=== PATIENT | female | born 1955 | race Caucasian/White ===

== ENCOUNTER 2017-06-07 08:24 | Outpatient (CLI) | payer OTHER ==
--- NOTE | 2017-06-12 12:44 | Mammography Report ---
DIGITAL BILATERAL SCREENING MAMMOGRAM: 06/07/2017 COMPARISON STUDY: Mammogram 06/08/2016 BREAST DENSITY: heterogeneously dense, which may lower the sensitivity of mammography. FINDINGS: There is a questionable cluster of microcalcifications of the right lower inner breast, much more conspicuous than on the prior examination. No mass or architectural distortion is seen in other regards. IMPRESSION: 1. BIRADS CATEGORY 0 - ADDITIONAL IMAGING IS REQUIRED. 2. RECOMMEND SPOT MAGNIFICATION VIEWS OF THE RIGHT BREAST LOWER INNER MARKED FOR EVALUATION OF CALCIFICATIONS. 3. SONOGRAPHIC EVALUATION OF THE RIGHT BREAST MAY BE CONSIDERED IF INDICATED AT THAT TIME. STANDARD QUALIFYING STATEMENTS 1. This examination was reviewed with the aid of Computer-Aided Detection (CAD). 2. A negative or benign imaging report should not delay biopsy if clinically suspicious findings are present. Consider surgical consultation if warranted. More than 5% of cancers are not identified by imaging. 3. Dense breasts may obscure an underlying neoplasm. JOB #: [id number] EXT JOB #: [id number] BRENT
== END 2017-06-07 08:25 | disposition home or self-care (01) ==
LOC: DI.N 08:24
PROVIDERS: ATTEND Family Medicine
DX: Z12.31 Encounter for screening mammogram for malignant neoplasm of breast (principal); R92.1 Mammographic calcification found on diagnostic imaging of breast
CPT/HCPCS: 77067

== ENCOUNTER 2017-07-02 08:51 | Outpatient (CLI) | payer OTHER ==
--- NOTE | 2017-07-02 17:52 | Mammography Report ---
DIAGNOSTIC RIGHT MAMMOGRAM: 07/02/2017 CLINICAL INDICATION: Calcifications. COMPARISON: 06/07/2017, 06/08/2106, 06/03/2015, 12/18/2013, 11/28/2012, 10/05/2011, 10/06/2010. TECHNIQUE: Right true lateral and spot magnification views. The right breast again demonstrates scattered fibroglandular densities. The calcifications are punct ate and diffuse. No pleomorphism is appreciated. No associated mass or architectural distortion. IMPRESSION: PROBABLE BENIGN PUNCTATE CALCIFICATIONS. RECOMMENDATION: DIAGNOSTIC RIGHT MAMMOGRAM IN SIX MONTHS, TO ASSURE STABILITY. BIRADS CATEGORY: 2, BENIGN FINDINGS. STANDARD QUALIFYING STATEMENTS 1. This examination was reviewed with the aid of Computed-Aided Detection (CAD). 2. A negative or benign imaging report should not delay biopsy if clinically suspicious findings are present. Consider surgical consultation if warranted. More than 5% of cancers are not identified b y imaging. 3. Dense breasts may obscure an underlying neoplasm. JOB #: [id number] EXT JOB #:[id number]
== END 2017-07-02 08:52 | disposition home or self-care (01) ==
LOC: DI 08:51
PROVIDERS: ATTEND Family Medicine
DX: R92.1 Mammographic calcification found on diagnostic imaging of breast (principal)

== ENCOUNTER 2018-06-27 08:41 | Outpatient (CLI) | payer OTHER ==
--- NOTE | 2018-06-27 09:56 | Mammography Report ---
Reason: 6 MONTHS FOLLOW UP,RIGHT BREAST CALIF Procedure Date: 06/27/2018 Accession Number: [id number] / [id number] Procedure: TAMRA - Diagnostic Dig Bilat CPT Code: FULL RESULT: EXAM: Diagnostic Dig Bilat DATE: 06/27/2018 9:42 AM CLINICAL HISTORY: Short interval follow-up surveillance imaging from prior exam. Follow-up right breast calcifications. No personal history of breast cancer. Family history and a cousin at age 50. TECHNIQUE: Bilateral CC and MLO views were obtained. COMPARISON: 06/07/2017 through 12/18/2013 FINDINGS: The breasts demonstrate scattered fibroglandular densities bilaterally. Right breast: There are stable diffusely distributed punctate calcifications slightly more prominent medially, unchanged compared to studies dating back to 2013. Stability and distribution are consistent with benign calcium. There are no suspicious masses, calcifications or areas of distortion. Left breast: There are no suspicious masses, calcifications or areas of distortion. IMPRESSION: Right breast: Stable diffusely distributed calcifications. Benign. BI-RADS Category 2. Left breast: Negative. BI-RADS Category 1 RECOMMENDATION: Routine annual screening unless otherwise clinically indicated. BI-RADS CATEGORY 2: Benign findings STANDARD QUALIFYING STATEMENTS: 1. This examination was not reviewed with the aid of Computer-Aided Detection (CAD). 2. A negative or benign imaging report should not preclude biopsy if clinically suspicious findings are present. 3. Dense breasts may obscure an underlying neoplasm. 4. This examination was reviewed with the aid of 3D breast imaging (tomosynthesis).
== END 2018-06-27 08:42 | disposition home or self-care (01) ==
LOC: DI 08:41
PROVIDERS: ATTEND Family Medicine
DX: R92.1 Mammographic calcification found on diagnostic imaging of breast (principal); Z80.3 Family history of malignant neoplasm of breast
CPT/HCPCS: 77066

== ENCOUNTER 2019-10-23 07:00 | Outpatient (CLI) | payer OTHER ==
[2019-10-23 12:00] LABS: BASOPHILS # (AUTO) 0.1 10^3/uL (0.0-0.1); EOSINOPHILS # (AUTO) 0.1 10^3/uL (0.0-0.7); EOSINOPHILS % (AUTO) 1.3 %; HGB - HEMOGLOBIN 13.8 g/dL (12.0-16.0); LYMPHOCYTES # (AUTO) 2.2 10^3/uL (1.5-3.5); LYMPHOCYTES % (AUTO) 35.4 %; MEAN CORPUSCULAR HEMOGLOBIN 28.3 pg (27.0-31.0); MEAN CORPUSCULAR VOLUME 91.2 fL (81.0-99.0); MEAN PLATELET VOLUME 12.8 fL (7.9-10.8); MONOCYTES # (AUTO) 0.6 10^3/uL (0.0-1.0); MONOCYTES % (AUTO) 9.4 %; NEUTROPHILS # (AUTO) 3.3 10^3/uL (1.5-6.6); NEUTROPHILS % (AUTO) 52.6 %; PLT - PLATELET COUNT 280 10^3/uL (130-450); RED BLOOD COUNT 4.88 10^6/uL (4.20-5.40); RED CELL DISTRIBUTION WIDTH 12.9 % (12.0-15.0); WHITE BLOOD COUNT 6.3 x10^3/uL (4.8-10.8)
[2019-10-23 12:15] LABS: ALBUMIN 4.4 g/dL (3.2-5.5); ALBUMIN/GLOBULIN RATIO 1.7 (1.0-2.2); ALKALINE PHOSPHATASE 61 IU/L (42-121); ALT ALANINE AMINOTRANSFERASE 19 IU/L (10-60); AST ASPARTATE AMINOTRANSFERASE 17 IU/L (10-42); BILIRUBIN,TOTAL 0.8 mg/dL (0.2-1.0); BUN - BLOOD UREA NITROGEN 15 mg/dL (6-20); CALCIUM 9.3 mg/dL (8.5-10.3); CARBON DIOXIDE - CO2 26 mmol/L (21-32); CHLORIDE 100 mmol/L (101-111); CHOL/HDL RATIO 2.6 (<4.4); CHOLESTEROL 131 mg/dL; CREATININE 0.7 mg/dL (0.4-1.0); GLUCOSE 115 mg/dL (70-100); HDL CHOLESTEROL 50 mg/dL; LDL CHOLESTEROL,CALCULATED 53 mg/dL; LDL/HDL RATIO 1.1 (<4.4); SODIUM 137 mmol/L (135-145); VLDL CHOLESTEROL 28 mg/dL
[2019-10-23 12:18] LABS: CREATININE,URINE 147.9 mg/dL; MICROALBUM/CREATININE RATIO,UR 6.8 ug/mg (<30.0)
[2019-10-23 12:20] LABS: HB2 TOTAL 14.5 g/dL; HEMOGLOBIN A1C 0.64 g/dL; HEMOGLOBIN A1C % 6.2 % (4.6-6.2)
== END 2019-10-23 23:59 | disposition home or self-care (01) ==
LOC: LAB.WCP 07:00
PROVIDERS: ATTEND Physician Assistant
DX: E11.9 Type 2 diabetes mellitus without complications (principal); E78.5 Hyperlipidemia, unspecified; E03.9 Hypothyroidism, unspecified
CPT/HCPCS: 36415; 80053; 80061; 82043; 82570; 83036; 83721; 84443; 85025

== ENCOUNTER 2021-07-11 08:00 | Outpatient (CLI) | payer OTHER ==
[2021-07-11 12:15] LABS: BASOPHILS # (AUTO) 0.1 10^3/uL (0.0-0.1); BASOPHILS % (AUTO) 0.8 %; EOSINOPHILS # (AUTO) 0.1 10^3/uL (0.0-0.7); EOSINOPHILS % (AUTO) 1.8 %; HCT - HEMATOCRIT 38.1 % (37.0-47.0); HGB - HEMOGLOBIN 12.6 g/dL (12.0-16.0); LYMPHOCYTES # (AUTO) 1.8 10^3/uL (1.5-3.5); LYMPHOCYTES % (AUTO) 27.9 %; MEAN CORPUSCULAR HEMOGLOBIN 29.5 pg (27.0-31.0); MEAN CORPUSCULAR HGB CONC 33.1 g/dL (32.0-36.0); MEAN CORPUSCULAR VOLUME 89.2 fL (81.0-99.0); MONOCYTES # (AUTO) 0.7 10^3/uL (0.0-1.0); MONOCYTES % (AUTO) 10.1 %; NEUTROPHILS # (AUTO) 3.9 10^3/uL (1.5-6.6); NEUTROPHILS % (AUTO) 58.9 %; RED BLOOD COUNT 4.27 10^6/uL (4.20-5.40); RED CELL DISTRIBUTION WIDTH 12.4 % (12.0-15.0); WHITE BLOOD COUNT 6.6 x10^3/uL (4.8-10.8)
[2021-07-11 12:19] LABS: CREATININE,URINE 67.3 mg/dL; MICROALBUM/CREATININE RATIO,UR 5.9 ug/mg (<30.0); MICROALBUMIN,URINE 0.4 mg/dL (0-300.0)
[2021-07-11 12:47] LABS: BILIRUBIN,URINE NEGATIVE (NEGATIVE); GLUCOSE, URINE (UA) NEGATIVE (NEGATIVE); KETONES,URINE (UA) NEGATIVE (NEGATIVE); LEUKOCYTE ESTERASE, URINE TRACE (NEGATIVE); NITRITE,URINE NEGATIVE (NEGATIVE); OCCULT BLOOD,URINE TRACE-INTA (NEGATIVE); PH,URINE 6.5 PH (5.0-7.5); PROTEIN,URINE NEGATIVE (NEGATIVE); UROBILINOGEN,URINE 0.2 (NORMAL) E.U./dL (NORMAL)
[2021-07-11 12:49] LABS: ESTIMATED AVERAGE GLUCOSE 134 mg/dL (70-100); HEMOGLOBIN A1c% 6.3 % (4.27-6.07)
[2021-07-11 12:57] LABS: CLARITY,URINE CLEAR (CLEAR)
[2021-07-11 13:00] LABS: PLATELET ESTIMATE, MANUAL NORMAL (130-450,000) (NORMAL); PLATELET MORPHOLOGY PLATELET CLUMPING (NORMAL); SLIDE REVIEW? Indicated
[2021-07-11 13:16] LABS: WBC,URINE 0-3 /HPF (0-5)
[2021-07-11 13:17] LABS: BACTERIA,URINE Rare /HPF (None Seen); RBC,URINE 0-5 /HPF (0-5); SQUAMOUS EPITHELIAL CELL,UR FEW Squamous (<= Few)
[2021-07-11 13:35] LABS: ALBUMIN 4.5 g/dL (3.2-5.5); ALBUMIN/GLOBULIN RATIO 1.6 (1.0-2.2); ALKALINE PHOSPHATASE 61 IU/L (42-121); ALT ALANINE AMINOTRANSFERASE 33 IU/L (10-60); AST ASPARTATE AMINOTRANSFERASE 30 IU/L (10-42); BILIRUBIN,TOTAL 0.7 mg/dL (0.2-1.0); BUN - BLOOD UREA NITROGEN 17 mg/dL (6-20); CALCIUM 9.6 mg/dL (8.5-10.3); CARBON DIOXIDE - CO2 29 mmol/L (21-32); CHLORIDE 97 mmol/L (101-111); CHOL/HDL RATIO 2.7 (<4.4); CHOLESTEROL 131 mg/dL; CREATININE 0.8 mg/dL (0.4-1.0); GFR - MDRD 72 (>89); GLUCOSE 97 mg/dL (70-100); HDL CHOLESTEROL 49 mg/dL; LDL CHOLESTEROL,CALCULATED 54 mg/dL; LDL/HDL RATIO 1.1 (<4.4); POTASSIUM 3.7 mmol/L (3.5-5.0); SODIUM 138 mmol/L (135-145); TOTAL PROTEIN 7.3 g/dL (6.7-8.2); TRIGLYCERIDES 140 mg/dL; VLDL CHOLESTEROL 28 mg/dL
[2021-07-11 13:37] LABS: THYROID STIMULATING HORMONE 2.75 uIU/mL (0.34-5.60)
[2021-07-11 13:39] LABS: FREE T4 (FREE THYROXINE) 1.38 ng/dL (0.58-1.64)
== END 2021-07-11 23:59 | disposition home or self-care (01) ==
LOC: LAB.WCP 08:00
PROVIDERS: ATTEND Nurse Practitioner
DX: E11.9 Type 2 diabetes mellitus without complications (principal); E78.5 Hyperlipidemia, unspecified; E03.9 Hypothyroidism, unspecified
CPT/HCPCS: 36415; 80053; 80061; 81001; 82043; 82570; 83036; 83721; 84439; 84443; 85025; 87086

== ENCOUNTER 2021-09-04 11:03 | Outpatient (CLI) | payer OTHER ==
--- NOTE | 2021-09-05 08:20 | Mammography Report ---
BILATERAL DIGITAL SCREENING MAMMOGRAM 3D/2D: 09/04/2021 CLINICAL: Routine screening. Comparison is made to exams dated: 07/07/2018 mammogram, 07/02/2017 mammogram, 06/07/2017 mammogram, 06/08/2016 mammogram, 06/03/2015 mammogram, and 12/18/2013 mammogram - [facility]. The tissue of both breasts is predominantly fatty. No significant masses, calcifications, or other findings are seen in either breast. There has been no significant interval change. IMPRESSION: NEGATIVE There is no mammographic evidence of malignancy. A 1 year screening mammogram is recommended. This exam was interpreted at Station ID: [id number]. NOTE: For mammograms, a report in lay terms will be sent to the patient. Approximately 15% of breast malignancies will not be visualized mammographically. In the management of a palpable breast mass, a negative mammogram must not discourage biopsy of a clinically suspicious lesion. Electronically Signed By: Edenilson Melissa M.D., jr/vinicius:09/04/2021 12:10:39 ACR BI-RADS Category 1: Negative 3341F PARENCHYMAL PATTERN: (F) - The breast(s) demonstrate(s) diffuse fatty replacement. BI-RADS CATEGORY: (1) - 1 RECOMMENDATION: (ANNUAL) - Recommend routine annual screening mammography. [id number] 1 year screening LATERALITY: (B)
== END 2021-09-04 11:04 | disposition home or self-care (01) ==
LOC: DI.N 11:03
PROVIDERS: ATTEND Nurse Practitioner
DX: Z12.31 Encounter for screening mammogram for malignant neoplasm of breast (principal)

== ENCOUNTER 2022-06-12 15:37 | Outpatient (CLI) | payer OTHER ==
--- NOTE | 2022-06-12 17:15 | XRAY Report ---
PROCEDURE: Knee 4 View RT INDICATIONS: R KNEE PX TECHNIQUE: 4 views of the right knee(s) were acquired. COMPARISON: None. FINDINGS: Bones: No fractures or dislocations. No suspicious bony lesions. There is moderate tricompartmenta l arthritic change. Small periarticular osteophytes are present. No erosions. Soft tissues: Moderate joint effusion. No suspicious soft tissue calcifications. IMPRESSION: Tricompartmental arthritic change. Reviewed by: Danielle Olvera MD on 06/12/2022 5:14 PM PDT Approved by: Danielle Olvera MD on 06/12/2022 5:14 PM PDT Station ID: [id number]
== END 2022-06-12 15:38 | disposition home or self-care (01) ==
LOC: DI.N 15:37
PROVIDERS: ATTEND Nurse Practitioner
DX: M17.11 Unilateral primary osteoarthritis, right knee (principal)

== ENCOUNTER 2022-07-09 08:00 | Outpatient (CLI) | payer OTHER ==
[2022-07-09 12:30] LABS: BASOPHILS % (AUTO) 0.4 %; EOSINOPHILS # (AUTO) 0.1 10^3/uL (0.0-0.7); EOSINOPHILS % (AUTO) 0.5 %; HCT - HEMATOCRIT 38.8 % (37.0-47.0); LYMPHOCYTES # (AUTO) 1.8 10^3/uL (1.5-3.5); LYMPHOCYTES % (AUTO) 18.3 %; MEAN CORPUSCULAR HGB CONC 33.5 g/dL (32.0-36.0); MEAN CORPUSCULAR VOLUME 89.4 fL (81.0-99.0); MEAN PLATELET VOLUME 11.8 fL (7.9-10.8); MONOCYTES # (AUTO) 0.6 10^3/uL (0.0-1.0); MONOCYTES % (AUTO) 6.5 %; NEUTROPHILS # (AUTO) 7.3 10^3/uL (1.5-6.6); PLT - PLATELET COUNT 306 10^3/uL (130-450); RED BLOOD COUNT 4.34 10^6/uL (4.20-5.40); RED CELL DISTRIBUTION WIDTH 12.5 % (12.0-15.0); WHITE BLOOD COUNT 9.8 x10^3/uL (4.8-10.8)
[2022-07-09 12:43] LABS: ALBUMIN 4.5 g/dL (3.2-5.5); ALBUMIN/GLOBULIN RATIO 1.4 (1.0-2.2); ALKALINE PHOSPHATASE 62 IU/L (42-121); ALT ALANINE AMINOTRANSFERASE 28 IU/L (10-60); AST ASPARTATE AMINOTRANSFERASE 25 IU/L (10-42); BILIRUBIN,TOTAL 0.8 mg/dL (0.2-1.0); BUN - BLOOD UREA NITROGEN 15 mg/dL (6-20); CALCIUM 9.5 mg/dL (8.5-10.3); CARBON DIOXIDE - CO2 31 mmol/L (21-32); CHLORIDE 94 mmol/L (101-111); CHOL/HDL RATIO 2.7 (<4.4); CHOLESTEROL 146 mg/dL; CREATININE 0.7 mg/dL (0.4-1.0); GFR - MDRD 83 (>89); GLUCOSE 110 mg/dL (70-100); HDL CHOLESTEROL 55 mg/dL; LDL CHOLESTEROL,CALCULATED 67 mg/dL; LDL/HDL RATIO 1.2 (<4.4); POTASSIUM 3.7 mmol/L (3.5-5.0); SODIUM 135 mmol/L (135-145); TOTAL PROTEIN 7.7 g/dL (6.7-8.2); TRIGLYCERIDES 121 mg/dL; VLDL CHOLESTEROL 24 mg/dL
[2022-07-09 13:01] LABS: CREATININE,URINE 181.9 mg/dL; MICROALBUM/CREATININE RATIO,UR 257.3 ug/mg (<30.0); MICROALBUMIN,URINE 46.8 mg/dL (0-300.0)
== END 2022-07-09 23:59 | disposition home or self-care (01) ==
LOC: LAB.N 08:00
PROVIDERS: ATTEND Nurse Practitioner
DX: E11.9 Type 2 diabetes mellitus without complications (principal); E78.5 Hyperlipidemia, unspecified; R82.79 Other abnormal findings on microbiological examination of urine
CPT/HCPCS: 36415; 80053; 80061; 82043; 82570; 83721; 85025; 87086

== ENCOUNTER 2022-12-31 07:56 | Outpatient (CLI) | payer OTHER ==
[2022-12-31 08:24] LABS: CALCIUM 9.4 mg/dL (8.5-10.3); CREATININE 0.6 mg/dL (0.4-1.0); POTASSIUM 3.7 mmol/L (3.5-5.0)
[2022-12-31 19:07] LABS: ESTIMATED AVERAGE GLUCOSE 131 mg/dL (70-100); HEMOGLOBIN A1c% 6.2 % (4.27-6.07)
== END 2022-12-31 07:57 | disposition home or self-care (01) ==
LOC: LAB 07:56
PROVIDERS: ATTEND Nurse Practitioner
DX: E11.9 Type 2 diabetes mellitus without complications (principal)
CPT/HCPCS: 36415; 80048; 83036

== ENCOUNTER 2023-02-21 11:03 | Outpatient (CLI) | payer OTHER ==
--- NOTE | 2023-02-22 11:10 | Mammography Report ---
BILATERAL DIGITAL SCREENING MAMMOGRAM 3D/2D: 02/21/2023 CLINICAL: Routine screening. Comparison is made to exams dated: 09/04/2021 mammogram, 07/07/2018 mammogram, 07/02/2017 mammogram, 06/07/2017 mammogram, 06/08/2016 mammogram, and [facility] There are scattered areas of fibroglandular density in both breasts (category b / 25%-50% glandular t issue). There is a 0.6 cm oval equal density focal asymmetry in the right breast at 2 o'clock anterior depth. This is more prominent and increased in size. No other significant masses, calcifications, or other findings are seen in either breast. IMPRESSION: INCOMPLETE: NEEDS ADDITIONAL IMAGING EVALUATION The 0.6 cm oval equal density focal asymmetry in the right breast is indeterminate. Additional views with possible ultrasound are recommended. Based on the Tyrer Cuzick model (a risk assessment model) the patients lifetime risk is 4.6% and her 10 year risk is 2.6%. According to the ACR, ACS, and NCCN guidelines, an annual breast MRI exam reyna g with mammogram is recommended if the patients lifetime risk is 20% or greater. This exam was interpreted at Station ID: [id number]. NOTE: For mammograms, a report in lay terms will be sent to the patient. Approximately 15% of breast malignancies will not be visualized mammographically. In the management of a palpable breast mass, a negative mammogram must not discourage biopsy of a clinically suspicious lesion. Electronically Signed By: Sumit Sheth M.D. aty/:02/21/2023 14:02:13 ACR BI-RADS Category 0: Incomplete 3340F PARENCHYMAL PATTERN: (A) - The breast(s) demonstrate(s) scattered fibroglandular densities. BI-RADS CATEGORY: (0) - 0 Mammo and [place] [id number] Immediate follow-up LATERALITY: (R)
== END 2023-02-21 11:04 | disposition home or self-care (01) ==
LOC: DI.N 11:03
PROVIDERS: ATTEND Nurse Practitioner
DX: Z12.31 Encounter for screening mammogram for malignant neoplasm of breast (principal); R92.8 Other abnormal and inconclusive findings on diagnostic imaging of breast

== ENCOUNTER 2023-02-25 10:35 | Outpatient (CLI) | payer OTHER ==
--- NOTE | 2023-02-25 17:47 | DEXA Report ---
PROCEDURE: Dexa Spine and/or Hip INDICATIONS: POST MENOPAUSAL TECHNIQUE: Dual energy x-ray absorptiometry (DXA) was performed on a Ocelus System. Regions measur ed are the AP Spine, femoral neck, and if needed forearm. COMPARISON: None FINDINGS: Lumbar Spine: Bone Mineral Density 1.1-7 g/cm/cm,T score -0.4. Left Femoral Neck: Bone Mineral Density 1.048 g/cm/cm, T score 0.1. Left Hip: Bone Mineral Density 1.002 g/cm/cm,T score 0.0. Left Forearm: Bone Mineral Density g/cm/cm, T score . (T score greater or equal to -1.0: NORMAL) (T score from -1.1 to -2.4: OSTEOPENIA) (T score less than or equal to -2.5 to: OSTEOPOROSIS) Impression: No osteopenia or osteoporosis of the left hip or the lumbar spine.. Patients with diagnosis of osteoporosis or osteopenia should have regular bone mineral density assess ment. For those eligible for Medicare, routine testing is allowed once every 2 years. Testing frequ ency can be increased for patients who have rapidly progressing disease or for those who are receivin g medical therapy to restore bone mass. Reviewed by: Nayely Smith MD on 02/25/2023 5:46 PM PDT Approved by: Nayely Smith MD on 02/25/2023 5:46 PM PDT Station ID: [id number]
== END 2023-02-25 10:36 | disposition home or self-care (01) ==
LOC: DI 10:35
PROVIDERS: ATTEND Nurse Practitioner
DX: Z78.0 Asymptomatic menopausal state (principal)

== ENCOUNTER 2023-03-14 08:14 | Outpatient (CLI) | payer OTHER ==
--- NOTE | 2023-03-14 11:38 | Mammography Report ---
UNILATERAL RIGHT DIGITAL DIAGNOSTIC MAMMOGRAM 3D/2D WITH SPOT COMPRESSION: 03/14/2023 CLINICAL: Patient returns today to evaluate a focal asymmetry in the right breast. Comparison is made to exams dated: 02/21/2023 mammogram, 09/04/2021 mammogram, and 07/07/2018 mammogram - [facility]. There are scattered areas of fibroglandular density in the right breast (category b / 25%-50% glandul ar tissue). There is a 0.6 cm oval focal asymmetry in the right breast at 2 o'clock anterior depth. This is more prominent. No other significant masses or calcifications are seen in the breast. IMPRESSION: INCOMPLETE: NEEDS ADDITIONAL IMAGING EVALUATION The 0.6 cm oval focal asymmetry in the right breast resembles a cyst and is indeterminate. A targeted ultrasound is recommended and will immediately follow. Based on the Tyrer Cuzick model (a risk assessment model) the patients lifetime risk is 4.5% and her 10 year risk is 2.5%. According to the ACR, ACS, and NCCN guidelines, an annual breast MRI exam reyna g with mammogram is recommended if the patients lifetime risk is 20% or greater. This exam was interpreted at Station ID: [id number]. NOTE: For mammograms, a report in lay terms will be sent to the patient. Approximately 15% of breast malignancies will not be visualized mammographically. In the management of a palpable breast mass, a negative mammogram must not discourage biopsy of a clinically suspicious lesion. Electronically Signed By: Arcadio Martinez M.D. slc/:03/14/2023 09:03:48 ACR BI-RADS Category 0: Incomplete 3340F PARENCHYMAL PATTERN: (A) - The breast(s) demonstrate(s) scattered fibroglandular densities. BI-RADS CATEGORY: (0) - 0 Ultrasound [id number] Immediate follow-up LATERALITY: (B)
--- NOTE | 2023-03-14 11:38 | Ultrasound Report ---
LIMITED ULTRASOUND OF RIGHT BREAST: 03/14/2023 CLINICAL: Patient returns today to evaluate a focal asymmetry in the right breast. Comparison is made to exams dated: 03/14/2023 mammogram, 02/21/2023 mammogram, 09/04/2021 mammogram, mammogram, 07/02/2017 mammogram, and 06/07/2017 mammogram - [facility]. Color flow and real-time ultrasound of the right breast 2 o'clock region were performed. Ace scale images of the real-time examination were reviewed. There is a benign 0.5 cm x 0.4 cm x 0.3 cm oval simple cyst in the right breast at 2 o'clock anterior depth 2 cm from the nipple. This oval simple cyst is anechoic. This correlates with mammography fi ndings. Color flow imaging demonstrates that there is no vascularity present. IMPRESSION: BENIGN There is no sonographic evidence of malignancy. The 0.5 cm simple cyst in the right breast is benign. A 1 year screening mammogram is recommended. Exam findings were conveyed to the patient. This exam was interpreted at Station ID: [id number]. Electronically Signed By: Arcadio Martinez M.D. slc/:03/14/2023 09:05:16 Ultrasound BI-RADS: 2 Benign BI-RADS CATEGORY: (2) - 2 Mammogram [id number] 1 year screening LATERALITY: (B)
== END 2023-03-14 08:15 | disposition home or self-care (01) ==
LOC: DI 08:14
PROVIDERS: ATTEND Nurse Practitioner
DX: N60.01 Solitary cyst of right breast (principal)

== ENCOUNTER 2023-07-15 08:00 | Outpatient (CLI) | payer OTHER ==
[2023-07-15 08:57] LABS: BASOPHILS % (AUTO) 0.6 %; EOSINOPHILS # (AUTO) 0.1 10^3/uL (0.0-0.7); EOSINOPHILS % (AUTO) 0.8 %; HCT - HEMATOCRIT 39.1 % (37.0-47.0); LYMPHOCYTES # (AUTO) 1.9 10^3/uL (1.5-3.5); LYMPHOCYTES % (AUTO) 28.2 %; MEAN CORPUSCULAR HGB CONC 33.2 g/dL (32.0-36.0); MEAN CORPUSCULAR VOLUME 90.3 fL (81.0-99.0); MONOCYTES # (AUTO) 0.5 10^3/uL (0.0-1.0); MONOCYTES % (AUTO) 6.9 %; NEUTROPHILS # (AUTO) 4.1 10^3/uL (1.5-6.6); NEUTROPHILS % (AUTO) 63.2 %; RED BLOOD COUNT 4.33 10^6/uL (4.20-5.40); RED CELL DISTRIBUTION WIDTH 12.5 % (12.0-15.0); WHITE BLOOD COUNT 6.6 x10^3/uL (4.8-10.8)
[2023-07-15 09:07] LABS: SLIDE REVIEW? Indicated
[2023-07-15 09:19] LABS: ALBUMIN 4.7 g/dL (3.2-5.5); ALBUMIN/GLOBULIN RATIO 2.2 (1.0-2.2); ALKALINE PHOSPHATASE 58 IU/L (42-121); ALT ALANINE AMINOTRANSFERASE 17 IU/L (10-60); AST ASPARTATE AMINOTRANSFERASE 23 IU/L (10-42); BILIRUBIN,TOTAL 0.7 mg/dL (0.2-1.0); BUN - BLOOD UREA NITROGEN 14 mg/dL (6-20); CALCIUM 9.7 mg/dL (8.5-10.3); CARBON DIOXIDE - CO2 29 mmol/L (21-32); CHLORIDE 94 mmol/L (101-111); CHOL/HDL RATIO 2.3 (<4.4); CHOLESTEROL 129 mg/dL; CREATININE 0.6 mg/dL (0.6-1.3); GFR - MDRD 99 (>89); GLUCOSE 85 mg/dL (74-104); HDL CHOLESTEROL 57 mg/dL; LDL CHOLESTEROL,CALCULATED 52 mg/dL; LDL/HDL RATIO 0.9 (<4.4); POTASSIUM 3.7 mmol/L (3.5-4.5); SODIUM 132 mmol/L (135-145); TOTAL PROTEIN 6.8 g/dL (6.4-8.9); TRIGLYCERIDES 98 mg/dL (48-352); VLDL CHOLESTEROL 20 mg/dL
[2023-07-15 09:26] LABS: BILIRUBIN,URINE NEGATIVE (NEGATIVE); GLUCOSE, URINE (UA) NEGATIVE (NEGATIVE); KETONES,URINE (UA) TRACE mg/dL (NEGATIVE); LEUKOCYTE ESTERASE, URINE SMALL (NEGATIVE); NITRITE,URINE NEGATIVE (NEGATIVE); OCCULT BLOOD,URINE TRACE-INTA (NEGATIVE); PROTEIN,URINE NEGATIVE (NEGATIVE); UROBILINOGEN,URINE 0.2 (NORMAL) E.U./dL (NORMAL)
[2023-07-15 09:30] LABS: CLARITY,URINE CLEAR (CLEAR)
[2023-07-15 09:32] LABS: PLATELET ESTIMATE, MANUAL NORMAL (130-450,000) (NORMAL); RBC MORPHOLOGY (MULTIPLE) NORMAL APPEARANCE (NORMAL)
[2023-07-15 09:33] LABS: THYROID STIMULATING HORMONE 1.19 uIU/mL (0.34-5.60)
[2023-07-15 09:37] LABS: CREATININE,URINE 83.5 mg/dL
[2023-07-15 09:40] LABS: MICROALBUMIN,URINE < 0.7 mg/dL
[2023-07-15 11:49] LABS: ESTIMATED AVERAGE GLUCOSE 114 mg/dL (70-100); HEMOGLOBIN A1c% 5.6 % (4.27-6.07)
== END 2023-07-15 08:01 | disposition home or self-care (01) ==
LOC: LAB 08:00
PROVIDERS: ATTEND Nurse Practitioner
DX: I10 Essential (primary) hypertension (principal); E78.5 Hyperlipidemia, unspecified; E11.9 Type 2 diabetes mellitus without complications; G62.9 Polyneuropathy, unspecified; E03.9 Hypothyroidism, unspecified
CPT/HCPCS: 36415; 80053; 80061; 81003; 82043; 82570; 82607; 83036; 83721; 84439; 84443; 85025

== ENCOUNTER 2023-09-03 10:11 | Outpatient (CLI) | payer OTHER ==
[2023-09-03 10:51] LABS: ALBUMIN 4.5 g/dL (3.2-5.5); BILIRUBIN,TOTAL 0.8 mg/dL (0.2-1.0); CALCIUM 9.5 mg/dL (8.5-10.3); CREATININE 0.6 mg/dL (0.6-1.3); POTASSIUM 3.8 mmol/L (3.5-4.5); TOTAL PROTEIN 6.8 g/dL (6.4-8.9)
== END 2023-09-03 10:12 | disposition home or self-care (01) ==
LOC: LAB 10:11
PROVIDERS: ATTEND Nurse Practitioner
DX: I10 Essential (primary) hypertension (principal)
CPT/HCPCS: 36415; 80053

== ENCOUNTER 2023-09-25 09:55 | Day surgery (SDC) | payer OTHER ==
[~2023-09-25 09:55] MED LIST: PROPOFOL 500 MG/50 ML 500 MG/50 ML VIAL ONE
--- NOTE | 2023-09-25 10:29 | ANESTHESIA ---
Pre-Anesthesia VS, & Labs - Diagnosis hx colon polyps - Procedure colonoscopy Height: 5 ft 5 in Weight (kg): 65.3 kg Body Mass Index: 23.9 BMI Classification: Normal - NPO >8 hours Last Fluid Intake: am prep - Is Patient ?: No - Lab Results Lab results reviewed: Yes Home Medications and Allergies Home Medications: Ambulatory Orders Atorvastatin [Lipitor] 1 tab PO DAILY 09/24/23 Chlorthalidone 1 tab PO DAILY 09/24/23 Levothyroxine [Synthroid] 100 mcg PO QDAC 09/24/23 Lisinopril [Zestril] 20 mg PO BID 09/24/23 metFORMIN [Glucophage] 500 mg PO DAILY 09/24/23 Atorvastatin [Lipitor] 1 tab PO DAILY 09/24/23 Chlorthalidone 1 tab PO DAILY 09/24/23 Levothyroxine [Synthroid] 100 mcg PO QDAC 09/24/23 Lisinopril [Zestril] 20 mg PO BID 09/24/23 metFORMIN [Glucophage] 500 mg PO DAILY 09/24/23 Allergies/Adverse Reactions: Allergies Allergy/AdvReac Type Severity Reaction Status Date / Time No Known Drug Allergies Allergy Verified 09/24/23 13:40 Anes History & Medical History - Anesthetic History Anesthesia Complications: reports: No previous complications Family history of Anesthesia Complications: Denies Family history of Malignant Hyperthermia: Denies - Medical History Cardiovascular: reports: Hypertension, High cholesterol Gastrointestinal: reports: Colon polyps Urinary: reports: Incontinence Musculoskeletal: reports: None Endocrine/Autoimmune: reports: Type 2 diabetes, HyPOthyroidism, Other Skin: reports: None, Other Psychosocial: reports: No issues indicated - Surgical History General: reports: Cholecystectomy Eyes Ears Nose Throat (EENT): reports: Tonsil/Adenoidectomy Exam General: Alert, Oriented x3, Cooperative Dental: WNL Mouth Openin Fingerbreadth Neck Mobility: Normal Mallampati classification: III Thyromental Distance: 4-6 cm Respiratory: Lungs clear, Normal breath sounds, No respiratory distress Cardiovascular: Regular rate Neurological: Normal speech Mental/Cognitive Status: Alert/Oriented X3, Normal for patient Cognitive Status: Within normal limits Plan Anesthesia Type: Total IV Consent for Procedure(s) Verified and Reviewed: Yes Code Status: Attempt Resuscitation ASA classification: 2-Mild systemic disease Is this case an emergency?: No
[2023-09-25] MEDS: LACTATED RINGERS 1,000 ML IV ONE (11:24)
[2023-09-25 11:25] VITALS: O2SAT 100
[2023-09-25] MEDS ORDERED: MIDAZOLAM 2 MG/2 ML VIAL ONE (11:29)
[2023-09-25] MEDS: LACTATED RINGERS 100 ML IV ONE (12:16)
--- NOTE | 2023-09-25 12:20 | ANESTHESIA POST OP EVALUATION ---
Anesthesia Post Eval - Post Anesthesia Eval Vitals: Last Vital Signs Temp 35.9 C L 09/25/23 11:01 Pulse 83 09/25/23 11:01 Resp 16 09/25/23 11:01 BP 155/70 H 09/25/23 11:01 Pulse Ox 100 09/25/23 11:01 O2 Flow Rate CV Function Including HR & BP: Stable Pain Control: Satisfactory Nausea & Vomiting: Negative Mental Status: Baseline Respiratory Status: Airway Patent Hydration Status: Satisfactory Anesthesia Complications: None
[2023-09-25 12:48] VITALS: BP 110/56
== END 2023-09-25 09:56 | disposition home or self-care (01) ==
LOC: SDS 09:55
PROVIDERS: ATTEND Surgery
PROC: 0DBM8ZZ Excision of Descending Colon, Via Natural or Artificial Opening Endoscopic (ICD-10-PCS; principal; 2023-09-25 12:00)
DX: Z12.11 Encounter for screening for malignant neoplasm of colon (principal); D12.4 Benign neoplasm of descending colon; K57.30 Diverticulosis of large intestine without perforation or abscess without bleeding; Z79.84 Long term (current) use of oral hypoglycemic drugs; E11.9 Type 2 diabetes mellitus without complications
CPT/HCPCS: 45385; J7120

== ENCOUNTER 2023-10-16 10:07 | Outpatient (CLI) | payer OTHER ==
[2023-10-16 10:57] LABS: ESTIMATED AVERAGE GLUCOSE 114 mg/dL (70-100); HEMOGLOBIN A1c% 5.6 % (4.27-6.07)
[2023-10-16 16:04] LABS: CALCIUM 9.8 mg/dL (8.5-10.3); CREATININE 0.6 mg/dL (0.6-1.3); POTASSIUM 3.8 mmol/L (3.5-4.5)
== END 2023-10-16 10:08 | disposition home or self-care (01) ==
LOC: LAB 10:07
PROVIDERS: ATTEND Nurse Practitioner
DX: E11.9 Type 2 diabetes mellitus without complications (principal)
CPT/HCPCS: 36415; 80048; 83036

== ENCOUNTER 2024-04-10 08:20 | Outpatient (CLI) | payer OTHER ==
[2024-04-10 09:12] LABS: ESTIMATED AVERAGE GLUCOSE 108 mg/dL (70-100); HEMOGLOBIN A1c% 5.4 % (4.27-6.07)
== END 2024-04-10 08:21 | disposition home or self-care (01) ==
LOC: LAB 08:20
PROVIDERS: ATTEND Nurse Practitioner
DX: E11.9 Type 2 diabetes mellitus without complications (principal)
CPT/HCPCS: 36415; 83036